=== PATIENT | male | born 1970 | race American Indian/Alaskan Native ===

== ENCOUNTER 2021-12-23 10:00 | Emergency (ER) | payer SELFPAY ==
[2021-12-23] MEDS ORDERED: dexAMETHasone 20 MG/5 ML VIAL IM ONE (13:58)
[2021-12-23] MEDS ORDERED: ONDANSETRON 4 MG ODT TAB PO ONE (13:58)
[2021-12-23] MEDS ORDERED: MORPHINE 4 MG/1 ML INJ IM ONE (13:58)
[2021-12-23] MEDS ORDERED: diazePAM 5 MG TAB PO ONE (13:58)
--- NOTE | 2021-12-23 14:30 | Emergency Department Report ---
ED Back Pain/Injury HPI - General Chief Complaint: Back Pain/Injury Stated Complaint: LBP ON RIGHT SIDE GOING TO LEG Source: patient Limitations: No Limitations - History of Present Illness Initial Comments: 51-year-old male with a history of cervical spine degeneration presents to the emergency department with back pain. Patient describes atraumatic back pain which started about a month ago progressively gotten worse. Pain in his left lower back radiates down to his left gluteal leg area, difficulty walking, difficulty sitting, no improvement with OTC pain medicines. He denies prior injury, he denies any weakness in the leg, he denies radiation to his abdomen or groin area, he denies paralysis or weakness of the extremity, no nausea vomiting no fever chills no loss of bladder or bowel function. MD Complaint: back pain -: Gradual, month(s) (1) Similar Symptoms Previously: No Place: work Radiation: left leg Quality: sharp, tingling Consistency: intermittent Improves With: immobilization Worsens With: movement, supine, sitting upright, walking, deep breaths/cough Context: unknown Associated Symptoms: numbness, difficulty walking. denies: weakness, cough, difficulty urinating, diaphoresis, incontinence, constipation, headaches, abdominal pain, loss of appetite, nausea/vomiting, shortness of breath, syncope - Related Data Previous Rx's Medication Instructions Recorded Last Taken Type Cyclobenzaprine [Flexeril] 10 mg PO TID PRN #30 12/23/[address] [Voltaren Dr] 75 mg PO BID PRN #30 tablet 12/23/21 Unknown Rx Lidocaine [Salonpas] 1 each TP DAILY #7 patch 12/23/21 Unknown Rx methylPREDNISolone [Medrol 4MG 4 mg PO DAILY #1 12/23/21 Unknown Rx DOSEPAK (21 tabs)] traMADoL [Ultram 50 MG tab] 50 mg PO Q6HR PRN #12 tablet 12/23/21 Unknown Rx Allergies Allergy/AdvReac Type Severity Reaction Status Date / Time No Known Allergies Allergy Verified 12/23/21 10:15 ED Review of Systems ROS: Stated complaint: LBP ON RIGHT SIDE GOING TO LEG Other details as noted in HPI Constitutional: no symptoms reported Eyes: as per HPI ENT: as per HPI Respiratory: no symptoms reported Endocrine: no symptoms reported Gastrointestinal: denies: abdominal pain, nausea, vomiting Genitourinary: denies: urgency, frequency, testicular pain Musculoskeletal: back pain, myalgia. denies: joint swelling Neurological: numbness, abnormal gait. denies: headache, weakness Psychiatric: denies: anxiety ED Past Medical Hx - Past Medical History Hx Hypertension: Yes - Social History Smoking Status: Current Every Day Smoker Substance Use Type: Alcohol - Medications Home Medications: Home Medications Medication Instructions Recorded Confirmed Last Taken Type Cyclobenzaprine [Flexeril] 10 mg PO TID PRN #30 12/23/[address] [Voltaren Dr] 75 mg PO BID PRN #30 tablet 12/23/21 Unknown Rx Lidocaine [Salonpas] 1 each TP DAILY #7 patch 12/23/21 Unknown Rx methylPREDNISolone [Medrol 4MG 4 mg PO DAILY #1 12/23/21 Unknown Rx DOSEPAK (21 tabs)] traMADoL [Ultram 50 MG tab] 50 mg PO Q6HR PRN #12 tablet 12/23/21 Unknown Rx ED Physical Exam - General Limitations: No Limitations General appearance: alert, in no apparent distress - Head Head exam: Present: atraumatic - Eye Eye exam: Present: normal appearance Pupils: Present: normal accommodation - ENT ENT exam: Present: normal exam, mucous membranes moist - Neck Neck exam: Present: normal inspection, full ROM. Absent: tenderness, lymphadenopathy - Respiratory Respiratory exam: Present: normal lung sounds bilaterally. Absent: chest wall tenderness - Cardiovascular Cardiovascular Exam: Present: regular rate, normal rhythm - GI/Abdominal GI/Abdominal exam: Present: soft, normal bowel sounds. Absent: distended, tenderness, hyperactive bowel sounds - Extremities Exam Extremities exam: Present: normal inspection, normal capillary refill. Absent: full ROM, calf tenderness - Back Exam Back exam: Present: normal inspection, tenderness, muscle spasm, paraspinal tenderness, other ((Lumbar tenderness left gluteal tenderness, intact strength sensation movement bilateral lower extremities.). Absent: full ROM ED Course Vital Signs 12/23/21 10:13 Temperature 98.3 F Pulse Rate 81 Respiratory 20 Rate Blood Pressure 163/94 [Right] O2 Sat by Pulse 100 Oximetry ED Medical Decision Making - Medical Decision Making 51-year-old male with a history of cervical spine degeneration presents to the emergency department with back pain. Patient describes atraumatic back pain which started about a month ago progressively gotten worse. Pain in his left lower back radiates down to his left gluteal leg area, difficulty walking, difficulty sitting, no improvement with OTC pain medicines. He denies prior injury, he denies any weakness in the leg, he denies radiation to his abdomen or groin area, he denies paralysis or weakness of the extremity, no nausea vomiting no fever chills no loss of bladder or bowel function. DTRs intact strength sensation intact, no bladder or bowel dysfunction, treated with supportive therapy including pain management NSAIDs muscle relaxants steroids, Rx for NSAIDs steroids and muscle relaxant. With orthopedic referral. Discussed all of this with patient including follow-up, return precautions, activity modification with understanding. Ambulated out of the emergency room without assistance Critical care attestation.: If time is entered above; I have spent that time in minutes in the direct care of this critically ill patient, excluding procedure time. ED Disposition Clinical Impression: Back pain with radiculopathy, Sciatic leg pain Disposition: HOME / SELF CARE / HOMELESS Is pt being admited?: No Does the pt Need Aspirin: No Condition: Stable Instructions: Sciatica, Neuropathic Pain Prescriptions: Cyclobenzaprine [Flexeril] 10 mg PO TID PRN #30 PRN Reason: Muscle Spasm methylPREDNISolone [Medrol 4MG DOSEPAK (21 tabs)] 4 mg PO DAILY #1 Lidocaine [Salonpas] 1 each TP DAILY #7 patch traMADoL [Ultram 50 MG tab] 50 mg PO Q6HR PRN #12 tablet PRN Reason: Pain Diclofenac Dr [Voltaren ] 75 mg PO BID PRN #30 tablet PRN Reason: Pain , Severe (7-10) Referrals: [facility] [Provider Group] - 3-5 Days
[2021-12-23 14:38] VITALS: BP 124/67
== END 2021-12-23 14:37 | disposition home or self-care (01) ==
LOC: ED 10:00
DX: M54.16 Radiculopathy, lumbar region (principal); M54.32 Sciatica, left side; M79.605 Pain in left leg; I10 Essential (primary) hypertension; F17.200 Nicotine dependence, unspecified, uncomplicated; Z72.89 Other problems related to lifestyle; Z79.899 Other long term (current) drug therapy
CPT/HCPCS: 96372; 99282; J1100; J2270; J3490; Q0162